=== PATIENT | male | born 1995 | race Caucasian/White ===

== ENCOUNTER 2021-04-17 21:07 | Emergency (ER) | payer BC, SELFPAY ==
[2021-04-17 21:08] VITALS: BP 141/85; PULSE 76; RESP 16; TEMP 36.6; O2SAT 96; BMI 26.6
--- NOTE | 2021-04-17 21:22 | EX.ED.DYSGE1 ---
HPI History of Present Illness Chief Complaint: Allergic Reaction Informant: patient Onset/Context/Timing Onset: Today Current Severity: Mild Maximum Severity: Mild Narrative Narrative: Patient presents after a bee sting. Patient was stung the top of his head about an hour prior to arrival. He states his face started to feel slightly tight and a tingling sensation in his throat. He did take 1 tab of [id number] Benadryl. PFSH PFS Medical History Non-smoker Home Medications NK 04/17/21 [History Last Taken Unknown] Allergy/AdvReac Type Severity Reaction Status Date / Time bee venom protein (honey bee) Allergy Swelling Verified 04/17/21 21:10 Penicillins Allergy Hives Verified 04/17/21 21:10 Surgical History History of appendectomy Social History Smoking Status: Never smoker ROS ROS ED Constitutional Constitutional ED: Denies chills or fever(s) Eyes Eyes: Denies change in vision ENT ENT ED: Reports other Details: Face feels tight and slight tightness in throat. ; Denies ear pain Cardiovascular Cardiovascular: Reports chest pain; Denies palpitations Respiratory/Chest Respiratory/Chest: Denies cough or dyspnea Gastrointestinal Gastrointestinal: Denies abdominal pain, diarrhea, nausea or vomiting Genitourinary Genitourinary ED: Denies dysuria Musculoskeletal Musculoskeletal: Denies back pain or neck pain Integumentary Denies rash Neurologic Neurologic: Denies headache(s) Allergic/Immunologic Allergic/Immunologic ED: Denies mouth swelling, tongue swelling or urticaria EXAM Physical Exam Const Vital Signs: 04/17/21 21:08 Temperature 97.8 F Temperature Source Temporal Pulse Rate 76 Respiratory Rate 16 Blood Pressure 141/85 H Blood Pressure Mean 103 Pulse Ox 96 Oxygen Delivery Method Room Air Positive well nourished and well developed General Appearance ED: well developed HEENT HEENT Narrative: No noted lip or tongue edema. Patient speaks with a strong voice and is tolerating secretions well. Eyes PERRL and EOMs intact bilaterally Neck supple Chest Wall inspection of chest normal and palpation of chest normal Resp normal respiratory effort and clear to auscultation bilaterally Cardio regular rate and regular rhythm Extremity normal to inspection Neuro oriented x3 Sensorium / Orientation: alert Psych mental status grossly normal Skin no rashes or lesions noted Discharge Plan Triage Chief Complaint: Allergic Reaction ED Provider: Kaci Kowalski Dx/Rx/DC Orders Clinical Impression: Bee sting Instructions: ED BEE STING General Allergic Rxn Prescriptions: No Action NK RF: 0 Primary Care Provider: Care Physician,No Primary Referrals: Adriana Washburn DO [STAFF PHYSICIAN] - As Needed Care Physician,No Primary [Primary Care Provider] - Disposition Disposition: Home, self care
[2021-04-17] MEDS: MethylPREDNISolone 125 MG/2 ML Vial IV (21:38)
[2021-04-17] MEDS: DiphenhydrAMINE 50 MG/ML Syringe 12.5 MG IV (21:38)
[2021-04-17] MEDS: Famotidine 200 MG/20 ML MDV 20 MG in 0.9% Normal Saline (Pres. free 8 ML 300 MG IV (22:10)
[2021-04-17 22:54] VITALS: BP 112/77; PULSE 57; RESP 16; O2SAT 96
== END 2021-04-17 22:57 | disposition home or self-care (01) ==
PROVIDERS: Emergency Provider Emergency Medicine
DX: T63.441A Toxic effect of venom of bees, accidental (unintentional), initial encounter (principal)
CPT/HCPCS: 96374; 96375; 99284; A4216; J3490